=== PATIENT | male | born 1955 | race Hispanic/Latino ===

== ENCOUNTER → 2017-07-29 | Day surgery (SDC) | payer MEDICARE ==
[2017-07-28 11:29] LABS: BASOPHILS % 0.5 % (0.0-1.0); EOSINOPHILS # (AUTO) 0.1 (0.0-0.4); EOSINOPHILS % 1.2 % (0.0-6.0); HEMATOCRIT 38.4 % (38.2-49.6); HEMOGLOBIN 12.6 g/dL (14.0-18.0); LYMPHOCYTES # (AUTO) 2.4 (1.0-3.2); LYMPHOCYTES % 41.3 % (18.0-39.1); MEAN CORPUSCULAR HEMOGLOBIN 28.8 pg (28-32); MEAN CORPUSCULAR HGB CONC 32.8 g/dL (31-35); MEAN CORPUSCULAR VOLUME 87.7 fL (81-99); MONOCYTES # (AUTO) 0.7 (0.2-0.8); MONOCYTES % 12.7 % (4.4-11.3); NEUTROPHILS # (AUTO) 2.6 (2.1-6.9); NEUTROPHILS % 44.1 % (38.7-80.0); PLATELET COUNT 200 x10e3/uL (140-360); RED BLOOD COUNT 4.38 x10e6/uL (4.3-5.7); RED CELL DISTRIBUTION WIDTH 14.8 % (11.7-14.4)
--- NOTE | 2017-07-28 12:05 | Diagnostic Imaging Report ---
PROCEDURE: X-RAY CHEST, TWO VIEWS COMPARISON: None. INDICATIONS: PRE OPERATIVE CHEST X-RAY FOR LEFT HEART CATH FINDINGS: LUNGS: No consolidations or edema. PLEURA: No effusions or pneumothorax. HEART \T\ MEDIASTINUM: The heart is within normal size-limits. BONES \T\ SOFT TISSUES: No acute findings. Prominent soft tissue densities in both axillary regions is suggestive of adenopathy-clinical correlation suggested. CONCLUSION: 1. No acute thoracic abnormality. 2. Possible axillary lymphadenopathy. Chay Cummins D.O. Dictated by: Chay Cummins D.O. on 07/28/2017 at 12:07 Electronically approved by: Chay Cummins D.O. on 07/28/2017 at 12:07
--- NOTE | 2017-07-28 14:00 | Pre Op History & Physical ---
Patient will be presenting for a cardiac catheterization with possible intervention. HISTORY: A 62-year-old gentleman, diabetic, hypertensive, with prostate problem. Patient seen and evaluated in our office. He had cardiac stress test in March 2017. We treated him medically. However, he continued to have symptoms despite being on appropriate medication, and he presented back to our office complaining of retrosternal heaviness with activity with shortness of breath relieved with rest. Patient will be presenting for a cardiac catheterization. CURRENT MEDICATIONS: Aspirin 81 mg a day, lisinopril 20 mg a day, Janumet one tablet twice a day, nateglinide 120 mg t.i.d., Prilosec 40 mg a day, Flomax 0.4 mg a day, Carafate 1 g twice a day, citalopram 20 mg daily, bupropion XL 150 mg daily, Sinemet 25/100 one tablet t.i.d. ALLERGIES: NONE. PAST MEDICAL HISTORY 1. Hypertension. 2. Diabetes mellitus. 3. Depression. 4. Anxiety. 5. Parkinsonism. 6. Gastritis. 7. Prostate problem. 8. History of herniated disk in 1991. 9. Umbilical hernia surgery in 1979. 10. Left lip surgery in 1953. SOCIAL HISTORY: He is . He is nonsmoker. He is nonalcohol drinker. FAMILY HISTORY: Father at age 34 of diabetes complication. Mother at the age of 83 with pancreatic cancer. REVIEW OF SYSTEMS GENERAL: No fever, no chills. HEENT: Unremarkable. CARDIAC AND PULMONARY: As per acute illness. GI: No hematemesis, no melena. : No hematuria, no dysuria. PHYSICAL EXAMINATION VITAL SIGNS: Height of 5 feet 4 inches, weight of 152 pounds, blood pressure 140/70, heart rate of 80, respiratory rate of 18. HEENT: Remarkable for cleft palate scar. NECK: No elevation of jugular venous pulsation. CHEST: Clear to auscultation and percussion. HEART: PMI 5th left intercostal space. Normal 1st and 2nd heart sounds. ABDOMEN: Soft, with good bowel sounds. EXTREMITIES: No cyanosis, no clubbing, no edema. IMPRESSION AND PLAN: Exertional angina with positive stress test, diabetic, hypertensive. Abnormal stress test, continues to have symptoms. He will be presenting for a cardiac catheterization with possible intervention. Procedure risks, benefits, alternatives are discussed and explained. Job#: [id number] EV
[~2017-07-29] VITALS: Ht 162.6 cm; Wt 67.1 kg
[2017-07-29] VITALS (11 sets, daily range): BP systolic 106–151; BP diastolic 75–92
[~2017-07-29] MED LIST: ASPIRIN81 MG PO; BUPROPION XL150 MG PO; FENTANYL CITRATE/PF 100MCG/2 ML INJ ONE; HEPARIN SOD (PORCINE) 1000 UNIT/ML 30ML ONE; HEPARIN SOD/SOD CHLORIDE 2,000 ML ONE; IOPAMIDOL 370 MG/ML 200 ML INFUS..BTL INJ ONE; JANUMET XR 50-1 EAC1 PO; LIDOCAINE HCL 2% LOCAL 20 ML VIAL ONE; LISINOPRIL10 MG PO; MIDAZOLAM HCL 2 MG/2 ML VIAL ONE; NATEGLINIDE120 MG PO; NITROGLYCERIN/D5W 200 MCG/ML 0 ML ONE; OMEPRAZOLE40 MG PO; SODIUM CHLORIDE 0.9% 1000ML 1,000 ML ONE; SUCRALFATE1 GM PO; SYMBICORT 16010.2 GM INH; TAMSULOSIN HCL0.4 MG PO
--- OUTSIDE RECORDS SUMMARY | 2017-07-29 06:15 | XMS REPORT ---
Author Author [facility] Address Unknown Phone Unavailable Care Team Providers Care Service Control Operator Name Role Phone GUANAKITO SOARES Unavailable Unavailable Problems This patient has no known problems. Allergies, Adverse Reactions, Alerts This patient has no known allergies or adverse reactions. Medications This patient has no known medications. Results Test Description Test Time Test Comments Text Results Atomic Results Result Comments CHEST 2 VIEWS [place] [address] Patient Name: ESTELLA PATRICK MR #: [id number] : 1955 Age/Sex: 62/M Req #: [id number] Adm Physician: Ordered by: GUANAKITO SOARES MD Report #: [id number] Location: [facility] Room/Bed: Procedure: 10- 0022 DX/CHEST 2 VIEWS Exam Date: 07/28/17 Exam Time : 1136 REPORT STATUS: Signed PROCEDURE: X-RAY CHEST, TWO VIEWS COMPARISON: None. INDICATIONS: PRE OPERATIVE CHEST X-RAY FOR LEFT HEART CATH FINDINGS: LUNGS: No consolidations or edema. PLEURA: No effusions or pneumothorax. HEART T MEDIASTINUM: The heart is within normal size-limits. BONES T SOFT TISSUES: No acute findings. Prominent soft tissue densities in both axillary regions is suggestive of adenopathy-clinical correlation suggested. CONCLUSION: 1. No acute thoracic abnormality. 2. Possible axillary lymphadenopathy. Carlos Cummins D.O. Dictated by: Carlos Cummins D.O. on 07/28/2017 at 12 :07 Electronically approved by: Carlos Cummins D.O. on 07/28/2017 at 12: 07 Dictated By: CARLOS CUMMINS DO Transcribed By: BOIRS on 07/28/171206 COPY TO: GUANAKITO SOARES MD
[2017-07-29 08:19] LABS: ALANINE AMINOTRANSFERASE 8 IU/L (0-55); ALBUMIN/GLOBULIN RATIO 1.1 (0.8-2.0); ALKALINE PHOSPHATASE 49 IU/L (40-150); ANION GAP 13.1 mmol/L (8-16); BLOOD UREA NITROGEN 26 mg/dL (7-26); BUN/CREATININE RATIO 30 (6-25); CALCIUM 9.3 mg/dL (8.4-10.2); CARBON DIOXIDE 24 mmol/L (22-29); CHLORIDE 107 mmol/L (98-107); CREATININE, SERUM 0.88 mg/dL (0.72-1.25); EST GLOMERULAR FILTRATION RATE > 60 ML/MIN (60-); GLUCOSE 96 mg/dL (74-118); POTASSIUM 4.1 mmol/L (3.5-5.1); SODIUM 140 mmol/L (136-145)
--- NOTE | 2017-07-29 10:56 | Operative Report ---
DATE OF PROCEDURE: July 29, 2017 TITLE OF PROCEDURE: Left cardiac catheterization. INDICATIONS: Repeated chest pain. Abnormal stress test in March. The patient was treated medically. He continued to have a lot of chest pain, so the cardiac cath was done. TECHNICAL DETAILS: After the usual sterile preparation and draping procedure, intravenous Versed and fentanyl were given for sedation and local Xylocaine for anesthesia. A 4-[place] sheath was established in place. Marva left 4 and 3DRC catheters to engage the coronaries. Pigtail for hemodynamic measurement and left ventriculogram. At the end of the procedure, the sheath was removed. Hemostasis achieved manually. No complication. No blood loss. RESULTS A. Coronary angiogram. 1. Left main: Free of disease. 2. LAD: Ectatic proximal LAD with slow flow. 3. Circumflex coronary artery giving small 1st obtuse marginal and then 2 obtuse marginals with minimal plaquing. 4. Right coronary artery very ectatic, large vessels in its proximal and mid part with slow flow, 50% PLV branch disease. B. Hemodynamics: Aorta pressure 130/80. LV pressure 130/20. C. Left ventriculogram in the right anterior oblique view showed normal size ventricle with an ejection fraction of 60%. IMPRESSION 1. Dominant right coronary artery. 2. Ectatic proximal and mid right coronary artery with 50% posterior left ventricle. 3. Ectatic proximal left anterior descending with slow flow. 4. Left ventricular ejection fraction of 60%. COMPLICATIONS: None. BLOOD LOSS: None. RECOMMENDATIONS: Medical therapy. Job#: [id number]
== END | disposition home or self-care (01) ==
LOC: CATH LAB 06:13
PROVIDERS: ATTEND Internal Medicine Cardiovascular Disease
DX: I20.8 Other forms of angina pectoris (principal); R94.39 Abnormal result of other cardiovascular function study; I10 Essential (primary) hypertension; E11.9 Type 2 diabetes mellitus without complications; G20 Parkinson's disease; K29.70 Gastritis, unspecified, without bleeding; F32.9 Major depressive disorder, single episode, unspecified; F41.9 Anxiety disorder, unspecified; N42.9 Disorder of prostate, unspecified; Z01.812 Encounter for preprocedural laboratory examination; Z01.818 Encounter for other preprocedural examination; Z79.82 Long term (current) use of aspirin; Z79.84 Long term (current) use of oral hypoglycemic drugs
CPT/HCPCS: 36415 ×2; 71046; 77002; 80053; 82947; 84443; 85025; 93458; C1766; J2001; J2250; J7030; Q9967; 36140; 93452; J1644

== ENCOUNTER 2019-05-02 15:24 | Emergency (ER) | payer MEDICARE, OTHER ==
[~2019-05-02] VITALS: Ht 162.6 cm; Wt 67.1 kg
[~2019-05-02 15:24] MED LIST changes: -FENTANYL CITRATE/PF 100MCG/2 ML INJ ONE; -HEPARIN SOD (PORCINE) 1000 UNIT/ML 30ML ONE; -HEPARIN SOD/SOD CHLORIDE 2,000 ML ONE; -IOPAMIDOL 370 MG/ML 200 ML INFUS..BTL INJ ONE; -LIDOCAINE HCL 2% LOCAL 20 ML VIAL ONE; -MIDAZOLAM HCL 2 MG/2 ML VIAL ONE; -NITROGLYCERIN/D5W 200 MCG/ML 0 ML ONE; -SODIUM CHLORIDE 0.9% 1000ML 1,000 ML ONE
[2019-05-02 16:48] LABS: BILIRUBIN,URINE NEGATIVE (NEGATIVE); CLARITY,URINE HAZY (CLEAR); COLOR,URINE YELLOW (YELLOW); KETONES,URINE NEGATIVE (NEGATIVE); LEUKOCYTE ESTERASE ,URINE NEGATIVE (NEGATIVE); NITRITE,URINE NEGATIVE (NEGATIVE); PROTEIN,URINE DIPSTICK NEGATIVE (NEGATIVE); URINE UROBILINOGEN 0.2 mg/dL (0.2 - 1)
[2019-05-02 17:01] LABS: BACTERIA,URINE MODERATE /HPF; EPITHELIAL CELLS,URINE FEW /LPF; RBC,URINE 21-50 /HPF (0-5)
== END 2019-05-02 16:24 | disposition home or self-care (01) ==
LOC: ER 15:26
DX: R33.9 Retention of urine, unspecified (principal); I10 Essential (primary) hypertension; E11.9 Type 2 diabetes mellitus without complications; K21.9 Gastro-esophageal reflux disease without esophagitis; Z95.810 Presence of automatic (implantable) cardiac defibrillator
CPT/HCPCS: 81001; 87086; 99281

== ENCOUNTER → 2024-10-10 | Day surgery (SDC) | payer MEDICARE, OTHER ==
[2024-10-03 10:54] LABS: BASOPHILS % 0.4 % (0.0-1.0); EOSINOPHILS % 0.9 % (0.0-6.0); LYMPHOCYTES % 46.3 % (18.0-39.1); MONOCYTES % 9.8 % (4.4-11.3); NEUTROPHILS % 42.6 % (38.7-80.0); RED CELL DISTRIBUTION WIDTH 13.7 % (11.7-14.4)
[2024-10-03 11:30] LABS: EST GLOMERULAR FILTRATION RATE 95.0 ML/MIN (>=60)
[~2024-10-10] MED LIST changes: +EPHEDRINE SULFATE INJ 50 MG/ML VIAL ONE; +FENTANYL CITRATE/PF 100MCG/2 ML INJ ONE; +HYDRALAZINE HCL 20 MG/ML VIAL ONE; +HYDROCODONE/APAP 7.5MG-325MG 1 EA TAB ONE; +LOSARTAN POTASS25 MG PO; +MIDAZOLAM HCL 2 MG/2 ML VIAL ONE; +PROPOFOL IV EMULSION 50 ML IV ONE; +ROCURONIUM BROMIDE 1 ML IV ONE; +RYBELSUS7 MG PO; +SUCCINYLCHOLINE CHLORIDE 20 MG/ML 10ML VIAL ONE; +SUGAMMADEX SODIUM 200 MG/2 ML VIAL IV ONE; +SYNJARDY 12.5-1 EACH PO; +VASCEPA1 GM PO
[2024-10-10] MEDS: LACTATED RINGER'S 1,000 ML ONE (06:51)
[2024-10-10] MEDS: FENTANYL CITRATE/PF 100MCG/2 ML INJ ONE (10:58)
[2024-10-10] MEDS: ACETAMINOPHEN 1000 MG/100 ML 100 ML IV ONE (11:35)
[2024-10-10] MEDS: HYDROCODONE/APAP 7.5MG-325MG 1 EA TAB PO ONE (11:55)
[2024-10-10 12:30] VITALS: BP 140/80; PULSE 81; RESP 18; O2SAT 98
== END | disposition home or self-care (01) ==
LOC: OR 05:47
PROVIDERS: ATTEND Surgery
DX: K80.10 Calculus of gallbladder with chronic cholecystitis without obstruction (principal); K40.30 Unilateral inguinal hernia, with obstruction, without gangrene, not specified as recurrent; K66.0 Peritoneal adhesions (postprocedural) (postinfection); I10 Essential (primary) hypertension; E78.5 Hyperlipidemia, unspecified; M06.9 Rheumatoid arthritis, unspecified; M19.91 Primary osteoarthritis, unspecified site; E11.9 Type 2 diabetes mellitus without complications; Z79.84 Long term (current) use of oral hypoglycemic drugs; Z01.810 Encounter for preprocedural cardiovascular examination; Z01.812 Encounter for preprocedural laboratory examination; Z01.818 Encounter for other preprocedural examination; Z79.899 Other long term (current) drug therapy; Z79.82 Long term (current) use of aspirin
CPT/HCPCS: 36415 ×2; 47562; 71046; 80053; 82948; 85025; 88304; 93005; C1766; J0131; J0330; J0360; J2250; J2704; J3010; J7121